=== PATIENT | female | born 1985 | race Caucasian/White ===

== ENCOUNTER 2020-03-01 12:59 | Emergency (ER) | payer OTHER ==
[~2020-03-01] VITALS: Ht 165.1 cm; Wt 84.3 kg
[2020-03-01 13:14] VITALS: BP 132/81
--- NOTE | 2020-03-01 15:09 | NUR ---
TASK RN: PT DC HOME IN A STABLE CONDITION. DC INSTRUCTIONS WERE DISCUSSED WITH PT. PT VERBALZIED UNDERSTANDING. NO FURTHER QUETIONS OR CONCERNS EXPRESSED AT THAT TIME.
== END 2020-03-01 15:16 | disposition home or self-care (01) ==
LOC: ED 13:32
DX: J18.0 Bronchopneumonia, unspecified organism (principal); J20.9 Acute bronchitis, unspecified
CPT/HCPCS: 71045; 99283